=== PATIENT | female | born 1945 | race Two or more races ===

== ENCOUNTER 2019-08-23 06:00 | Outpatient (CLI) | payer OTHER ==
[~2019-08-23 06:00] MED LIST: ADVAIR 2501 DISK W/1; ALBUTEROL17 G1; AVANDAMET 2 MG/1 TA1; CLARITIN10 MG; MICARDIS80 MG; ROBITUSSIN100 MG/51
[2019-08-23] MEDS ORDERED: ADVAIR (15:07)
[2019-08-23] MEDS ORDERED: GLIMEPIRIDE4 M1 PO (15:09)
[2019-08-23] MEDS ORDERED: LANTUS (15:09)
[2019-08-23] MEDS ORDERED: CARAF PO (15:10)
[2019-08-23] MEDS ORDERED: CRESTOR20 MG PO (15:10)
[2019-08-23] MEDS ORDERED: PROTONIX40 M1 PO (15:11)
[2019-08-23] MEDS ORDERED: COZAAR100 MG (16:20)
== END 2019-08-23 14:26 | disposition home or self-care (01) ==
LOC: LAB 06:00 → RAD 06:00 → LAB 14:26 → ADM 08-24 10:00 → EDSTATUS 08-27 10:00 → CIR.AMB 08-27 10:00 → LAB 09-30 14:14
PROVIDERS: ATTEND Obstetrics & Gynecology
DX: N84.0 Polyp of corpus uteri (principal); Z20.828 Contact with and (suspected) exposure to other viral communicable diseases; Z01.810 Encounter for preprocedural cardiovascular examination; Z01.812 Encounter for preprocedural laboratory examination

== ENCOUNTER 2020-10-05 10:12 | Day surgery (SDC) | payer OTHER ==
[~2020-10-05 10:12] MED LIST changes: +ADVAIR; +ALLERGY RELIE15.8 ML NASAL; +CARAF PO; +CLONAZEPAM0.5 MG PO; +COZAAR100 MG; +CRESTOR20 MG PO; +GLIMEPIRIDE4 M1 PO; +LANTUS; +PROTONIX40 M1 PO; +SINGULAIR10 MG PO; +SYMBICORT 80/10.2 GM IH
== END 2020-10-06 00:30 | disposition home or self-care (01) ==
LOC: CIR.AMB 10:12
PROVIDERS: ATTEND Obstetrics & Gynecology
DX: N84.0 Polyp of corpus uteri (principal); Z20.822 Contact with and (suspected) exposure to COVID-19